=== PATIENT | male | born 1970 | race Two or more races ===

== ENCOUNTER 2023-11-27 08:31 | Emergency (ER) | payer OTHER ==
[~2023-11-27] VITALS: Ht 172.7 cm; Wt 90.0 kg
[2023-11-27 08:40] VITALS: O2SAT 99
[2023-11-27 09:14] LABS: BASOPHILS % 0.8 % (0.0-2.0); EOSINOPHILS % 0.8 % (0.0-5.0); HEMATOCRIT. 47.3 % (42.0-52.0); HEMOGLOBIN. 15.5 g/dL (14.0-18.0); MEAN CORPUSCULAR HEMOGLOBIN 31.2 pg (28.0-32.0); MEAN CORPUSCULAR HGB CONC 32.9 g/dL (31.0-37.0); MEAN CORPUSCULAR VOLUME 94.8 fL (80.0-94.0); MEAN PLATELET VOLUME 9.1 fl (7.4-10.4); MONOCYTES % 4.9 % (2.0-8.0); NEUTROPHILS % 68.5 % (40.0-76.0); PLATELET 191 x1000/uL (130-400); RED BLOOD CELL COUNT 4.99 mill/uL (4.7-6.1); RED CELL DISTRIBUTION WIDTH 13.4 % (11.6-14.6); WHITE BLOOD COUNT 5.7 x1000/uL (4.5-11.0)
[2023-11-27 09:27] LABS: CHLORIDE 106 mEq/L (98-107); POTASSIUM 4.5 mEq/L (3.5-5.1); SODIUM 140 mEq/L (136-145)
[2023-11-27 09:28] LABS: CALCIUM 9.3 mg/dL (8.7-10.4); CARBON DIOXIDE 29 mEq/L (21-32)
[2023-11-27 09:33] LABS: CREATININE 1.5 mg/dL (0.6-1.3); GLUCOSE 127 mg/dL (70-105); UREA NITROGEN BLOOD 10 mg/dL (9-23)
[2023-11-27 09:35] LABS: ALANINE AMINOTRANSFERASE 42 IU/L (10-49); ALBUMIN 4.4 g/dL (3.2-4.8); ASPARTATE AMINOTRANSFERASE 28 IU/L (<34); BILIRUBIN DIRECT 0.2 mg/dL (<=3.0); BILIRUBIN TOTAL 0.5 mg/dL (0.1-1.0); PROTEIN TOTAL 6.9 g/dL (6.0-8.3)
[2023-11-27 09:35] LABS: CLARITY URINE CLEAR (CLEAR); COLOR URINE YELLOW (YELLOW); GLUCOSE URINE NEGATIVE (NEGATIVE); KETONES URINE NEGATIVE (NEGATIVE); LEUKOCYTE ESTERASE URINE NEGATIVE (NEGATIVE); NITRITE URINE NEGATIVE (NEGATIVE); OCCULT BLOOD URINE 1+ (NEGATIVE); PH URINE 5.5 (4.5-8.0); PROTEIN URINE NEGATIVE (NEGATIVE); SPECIFIC GRAVITY URINE 1.018 (1.005-1.030); UROBILINOGEN URINE 0.2 E.U./dL (0.2-1.0)
[2023-11-27] MEDS ORDERED: KETOROLAC 30MG/ML VIAL IV STA (09:38)
[2023-11-27] MEDS: ONDANSETRON HCL 4MG/2ML INJ IV STA (09:38)
[2023-11-27 09:44] LABS: BACTERIA URINE NONE SEEN; SQUAMOUS EPITHELIAL CELL URINE RARE /lpf (RARE/1+); WBC URINE 0-2 /hpf (0-2); YEAST URINE NONE SEEN
[2023-11-27] MEDS: SODIUM CHLORIDE 0.9% 1,000 ML IV ONE (12:42)
[2023-11-27] MEDS: KETOROLAC 30MG/ML VIAL IV NR (12:42)
[2023-11-27] MEDS: TAMSULOSIN HCL 0.4MG SR CAPSULE PO ONE (12:51)
[2023-11-27] MEDS ORDERED: TAMS-11 MT (13:39)
[2023-11-27] MEDS ORDERED: IBUP-2028 MT (13:39)
[2023-11-27 14:00] VITALS: BP 122/79; PULSE 60; RESP 20; TEMP 97.9
== END 2023-11-27 14:49 | disposition home or self-care (01) ==
LOC: ER 08:31
DX: N20.0 Calculus of kidney (principal); Z90.49 Acquired absence of other specified parts of digestive tract; Z98.890 Other specified postprocedural states; Z88.8 Allergy status to other drugs, medicaments and biological substances
CPT/HCPCS: 80076; 80048; 81003; 83690; 85025; 36415; 74176; 96361; 96374; 96375; 99285; J1885; J7030; Z7610 ×2